=== PATIENT | female | born 1960 | race Caucasian/White ===

== ENCOUNTER 2017-01-11 08:27 | Day surgery (SDC) | payer BC ==
[2017-01-07 15:51] VITALS: BMI 26.2
[~2017-01-11 08:27] MED LIST: LACTATED RINGERS 1,000 ML IV SCH; LIDOCAINE 1% 20 ML VIAL (10MG/ML) FOR IV START INTRADERMA PRN
[2017-01-11 08:51] VITALS: RESP 18; TEMP 98
[2017-01-11] MEDS ORDERED: LACTATED RINGERS 1,000 ML IV ONE (08:53)
[2017-01-11] MEDS ORDERED: PROPOFOL 10 MG/ML 20 ML VIAL IV ONE (09:42)
--- NOTE | 2017-01-11 09:42 | P.GSHP ---
History of Present Illness H&P Date: 01/11/17 Chief Complaint: Screening colonoscopy This a 56-year-old female who presents today for screening colonoscopy. She has never had a colonoscopy before. She denies a significant GI complaints. - Constitutional Constitutional: Reports as per HPI Past Medical History Past Medical History: Musculoskeletal Disorder Additional Past Medical History / Comment(s): recent steroid injection for back pain, neuropathy History of Any Multi-Drug Resistant Organisms: None Reported Past Surgical History: Section Additional Past Surgical History / Comment(s): cervical fusion Past Anesthesia/Blood Transfusion Reactions: No Reported Reaction Smoking Status: Former smoker Past Alcohol Use History: Occasional Additional Past Alcohol Use History / Comment(s): quit smoking 2015, smoked 1ppd since teens Past Drug Use History: None Reported - Past Family History Father Family Medical History: Cancer Medications and Allergies Home Medications Medication Instructions Recorded Confirmed Type DULoxetine HCL [Cymbalta] 30 mg PO DAILY 01/07/17 01/07/17 History Ibuprofen [Motrin] 200 - 400 mg PO Q6HR PRN 01/07/17 01/11/17 History Allergies Allergy/AdvReac Type Severity Reaction Status Date / Time No Known Allergies Allergy Verified 01/07/17 15:42 Surgical - Exam Vital Signs Temp Pulse Resp BP Pulse Ox 98.0 F 87 18 147/83 98 01/11/17 08:50 01/11/17 08:50 01/11/17 08:50 01/11/17 08:50 01/11/17 08:50 - General well developed, no distress - Eyes PERRL - ENT normal pinna - Neck no masses - Respiratory normal expansion - Cardiovascular Rhythm: regular - Abdomen Abdomen: soft, non tender Assessment and Plan Plan: We'll perform screening colonoscopy
--- NOTE | 2017-01-11 10:00 | P.OP ---
Date of Procedure: 01/11/17 Preoperative Diagnosis: Screening colonoscopy Postoperative Diagnosis: Colon polyp Anesthesia: MAC Surgeon: Demetrius Ingram Pathology: other (Colon polyp) Condition: stable Disposition: PACU Description of Procedure: A shunt placed on the endoscopy table in the lateral position. She received IV sedation. Digital rectal exam was performed which revealed no abnormalities. The flexible colonoscope was then placed the patient's anus and passed throughout the entire colon. The ileocecal valve was visualized. The cecum, ascending and transverse colon appeared normal. The descending and; appeared normal. In the proximal rectum there was a small polyp seen this removed accommodation forcep and snare. Ainger the rectum appeared normal. Scope was withdrawn for patient.
[2017-01-11 10:24] VITALS: BP 132/89; PULSE 73
== END 2017-01-11 10:44 | disposition home or self-care (01) ==
LOC: ORWHC2ENDO 08:27
PROVIDERS: ATTEND Surgery
DX: Z12.11 Encounter for screening for malignant neoplasm of colon (principal); K62.1 Rectal polyp; Z87.891 Personal history of nicotine dependence; G89.29 Other chronic pain; M54.2 Cervicalgia; Z79.899 Other long term (current) drug therapy
CPT/HCPCS: 88305; 45385; J2704; 45380

== ENCOUNTER → 2019-01-09 | Outpatient (CLI) | payer BC ==
--- NOTE | 2019-01-09 18:09 | BD ---
EXAMINATION TYPE: Axial Bone Density DATE OF EXAM: 01/09/2019 COMPARISON: NONE CLINICAL HISTORY: 58-year-old female postmenopausal screening for osteoporosis Height: 64.5 IN Weight: 170 LBS RISK FACTORS HISTORY OF: Active: YES Diet low in dairy products/other sources of calcium: YES Postmenopausal woman: AGE 51 Take estrogen and/or progesterone medications: NOT NOW How long: TOOK FROM AGE [age] MEDICATIONS: Additional Medications: ZOLOFT, LISINOPRIL EXAM MEASUREMENTS: Bone mineral densitometry was performed using the [employer] System. Bone mineral density as measured about the Lumbar spine is: ----- L1-L4(G/cm2): 1.336 T Score Values are as follows: ----- L2: 1.1 ----- L3: 1.7 ----- L4: 1.4 ----- L1-L4: 1.3 Bone mineral density BASELINE Bone mineral density about the R hip (g/cm2): 0.933 Bone mineral density about the L hip (g/cm2): 0.916 T Score values are as follows: -----R Neck: -0.8 -----L Neck: -0.9 -----R Total: -0.3 -----L Total: -0.3 Bone mineral density BASELINE IMPRESSION: Normal (Values between +1 and -1 indicate normal bone mass). Consider repeating this study in 5 year s or sooner if there is some new clinical indication. NOTE: T-SCORE=SD OF THE YOUNG ADULT MEAN.
--- NOTE | 2019-01-10 13:34 | MM ---
Reason for exam: screening (asymptomatic). Last mammogram was performed 2 years and 8 months ago. History: Patient is postmenopausal. Physical Findings: A clinical breast exam by your physician is recommended on an annual basis and results should be correlated with mammographic findings. MG Screening Mammo w CAD Bilateral CC and MLO view(s) were taken. XCCL view(s) were taken of the right breast. Prior study comparison: April 28, 2016, mammogram, performed at [facility]. The breast tissue is heterogeneously dense. This may lower the sensitivity of mammography. No suspicious abnormality on the left breast. Right lateral asymmetry posterior depth. ASSESSMENT: Incomplete: need additional imaging evaluation, BI-RAD 0 RECOMMENDATION: Special view mammogram of the right breast. If lesion persists on supplemental views, image directed ultrasound is recommended. [facility] will attempt to contact patient to return for supplemental views and ultrasound if indicated.
== END | disposition home or self-care (01) ==
LOC: RADMAMWWP 12:03
PROVIDERS: ATTEND Family Medicine
DX: Z12.31 Encounter for screening mammogram for malignant neoplasm of breast (principal); Z13.820 Encounter for screening for osteoporosis
CPT/HCPCS: 77067; 77080

== ENCOUNTER → 2019-01-17 | Outpatient (CLI) | payer BC ==
--- NOTE | 2019-01-17 14:37 | MM ---
Reason for exam: additional evaluation requested from abnormal screening. Last mammogram was performed less than 1 month ago. History: Patient is postmenopausal. Physical Findings: Nurse did not find any significant physical abnormalities on exam. MG Work Up Mamm w CAD RT CC and MLO view(s) were taken of the right breast. Prior study comparison: January 09, 2019, bilateral MG screening mammo w CAD. April 28, 2016, mammogram, performed at [facility]. The breast tissue is heterogeneously dense. This may lower the sensitivity of mammography. There is no discrete abnormality including area of concern outer CC view. No significant new findings when compared with previous films. These results were verbally communicated with the patient and result sheet given to the patient on 01/17/19. ASSESSMENT: Probably benign, BI-RAD 3 RECOMMENDATION: Follow-up diagnostic mammogram of the right breast in 6 months.
== END | disposition home or self-care (01) ==
LOC: RADMAMWWP 13:43
PROVIDERS: ATTEND Family Medicine
DX: R92.8 Other abnormal and inconclusive findings on diagnostic imaging of breast (principal)
CPT/HCPCS: 77065

== ENCOUNTER → 2021-05-16 | Outpatient (CLI) | payer BC ==
--- NOTE | 2021-05-21 08:28 | MM ---
Reason for exam: screening (asymptomatic). Last mammogram was performed 2 years and 4 months ago. History: Patient is postmenopausal. Family history of breast cancer in grandmother. Physical Findings: A clinical breast exam by your physician is recommended on an annual basis and results should be correlated with mammographic findings. MG Screening Mammo w CAD Bilateral CC and MLO view(s) were taken. Prior study comparison: January 09, 2019, bilateral MG screening mammo w CAD. The breast tissue is heterogeneously dense. This may lower the sensitivity of mammography. There is chronic nodularity in the right breast. No significant changes when compared with prior studies. ASSESSMENT: Benign, BI-RAD 2 RECOMMENDATION: Routine screening mammogram of both breasts in 1 year.
== END | disposition home or self-care (01) ==
LOC: RADMAMWWP 13:04
PROVIDERS: ATTEND Family Medicine
DX: Z12.31 Encounter for screening mammogram for malignant neoplasm of breast (principal); Z80.3 Family history of malignant neoplasm of breast; Z78.0 Asymptomatic menopausal state
CPT/HCPCS: 77067

== ENCOUNTER → 2023-02-24 | Outpatient (CLI) | payer BC ==
--- NOTE | 2023-02-24 18:26 | BD ---
EXAMINATION TYPE: Axial Bone Density DATE OF EXAM: 02/24/2023 CLINICAL HISTORY: 62 years old Female. ICD-10 CODE: N95.1 MPOST MENOPAUSAL SYMPTOMS Height: 64 in Weight: 158 lbs FRAX RISK QUESTIONS: Secondary Osteoporosis: 3. Menopause before 45: age 56 Current Tobacco Use: yes RISK FACTORS HISTORY OF: Active: yes Diet low in dairy products/other sources of calcium: yes Postmenopausal woman: age 56 MEDICATIONS: Additional Medications: multi vit, toe nail fungus meds EXAM MEASUREMENTS: Bone mineral densitometry was performed using the [employer]. Bone mineral density as measured about the Lumbar spine is: ----- L1-L4(G/cm2): 1.309 T Score Values are as follows: ----- L1: 0.3 ----- L2: 0.8 ----- L3: 1.5 ----- L4: 1.3 ----- L1-L4: 1.1 Z Score Values are as follows: ----- L1: 1.4 ----- L2: 2.0 ----- L3: 2.6 ----- L4: 2.4 ----- L1-L4: 2.2 Bone mineral density has: Decreased -2.0% since study of: 01/09/2019 Bone mineral density about the R hip (g/cm2): 0.901 Bone mineral density about the L hip (g/cm2): 0.931 T Score values are as follows: -----R Neck: -1.2 -----L Neck: -1.1 -----R Total: -0.8 -----L Total: -0.6 Z Score values are as follows: -----R Neck: -0.1 -----L Neck: 0.0 -----R Total: 0.0 -----L Total: 0.3 Bone mineral density has: Decreased -5.6% since study of: 01/09/2019 FRAX%s: The graph provided illustrates a 7.8% chance for a major osteoporotic fx and a 1.0% chance fo r the hips probability for fx in 10 years time. IMPRESSION: Osteopenia (T Score between -2.5 and -1). There is slightly increased risk of fracture and the patient may be considered for treatment. Re-Screen 2-5 years. NOTE: T-SCORE=SD OF THE YOUNG ADULT MEAN.
--- NOTE | 2023-02-25 08:12 | MM ---
Reason for Exam: Screening (asymptomatic). Last mammogram was performed 1 year(s) and 9 month(s) ago. Patient History: Menarche at age 12. First Full-Term at age 26. Postmenopausal. Maternal grandmother had breast cancer. Risk Values: Teresa 5 year model risk: 1.8%. NCI Lifetime model risk: 8.6%. Prior Study Comparison: 01/09/2019 Bilateral Screening Mammogram, [facility]. 01/17/2019 Right Diagnostic Mammogram, [facility]. 05/16/2021 Bilateral Screening Mammogram, [facility]. Tissue Density: The breast tissue is heterogeneously dense. This may lower the sensitivity of mammography. Findings: Analyzed By CAD. There is no suspicious group of microcalcifications or new suspicious mass in either breast. Chronic nodularity seen right breast. Benign calcifications noted. Overall Assessment: Benign, BI-RAD 2 Management: Screening Mammogram of both breasts in 1 year. . Patient should continue monthly self-breast exams. A clinical breast exam by your physician is recommended on an annual basis. This exam should not preclude additional follow-up of suspicious palpable abnormalities. Note on Teresa scores and lifetime risk: 1. A Teresa score greater than 3% is considered moderate risk. If this is the case, consider specialist referral to assess eligibility for a risk reducing agent. 2. If overall lifetime risk for the development of breast cancer is 20% or higher, the patient may qualify for future screening with alternating mammogram and breast MRI. Electronically signed and approved by: Adelfo Gross M.D. Radiologis
== END | disposition home or self-care (01) ==
LOC: RADMAMWWP 09:14
PROVIDERS: ATTEND Family Medicine
DX: Z12.31 Encounter for screening mammogram for malignant neoplasm of breast (principal); M85.89 Other specified disorders of bone density and structure, multiple sites; Z78.0 Asymptomatic menopausal state; Z80.3 Family history of malignant neoplasm of breast
CPT/HCPCS: 77067; 77080